=== PATIENT | female | born 1960 | race Caucasian/White ===

== ENCOUNTER 2017-01-13 17:33 | Emergency (ER) | payer SELFPAY ==
[~2017-01-13] VITALS: Ht 170.2 cm; Wt 80.5 kg
[~2017-01-13 17:33] MED LIST: IBUP400T22 PO; NITR-58 PO; PHEN-537 PO
[2017-01-13 17:35] VITALS: Ht 170.2 cm; Wt 80.5 kg
== END 2017-01-13 19:30 | disposition left against medical advice (07) ==
LOC: E/R 17:33
DX: Z53.21 Procedure and treatment not carried out due to patient leaving prior to being seen by health care provider (principal)